=== PATIENT | male | born 1980 | race Caucasian/White ===

== ENCOUNTER 2020-08-28 17:23 | Inpatient (IN) | payer OTHER ==
[2020-08-28 18:26] VITALS: BMI 27.1
[2020-08-28] MEDS ORDERED: BISMUTH SUBSALICYLATE 524 MG/30 ML UD PO PRN (21:23)
[2020-08-28] MEDS ORDERED: MENTHOL/PHENOL 1 EACH UD MM PRN (21:23)
[2020-08-28] MEDS ORDERED: MAGNESIUM CITRATE 300 ML BOTTLE PO PRN (21:23)
[2020-08-28] MEDS ORDERED: MAGNESIUM HYDROX 2400MG/30ML ORAL SUSPENSION 30 ML CUP PO PRN (21:23)
[2020-08-28] MEDS ORDERED: ACETAMINOPHEN 325 MG TABLET (FP) PO PRN ×2 (21:23)
[2020-08-28] MEDS ORDERED: hydrOXYzine PAMOATE 25 MG CAPSULE (FP) PO PRN (21:23)
[2020-08-28] MEDS ORDERED: MAG HYDROX/AL HYDROX/SIMETH 30 ML UNIT-DOSE CUP PO PRN (21:23)
[2020-08-28] MEDS ORDERED: ONDANSETRON *ODT* 4 MG TABLET SL PRN (21:23)
[2020-08-28] MEDS: MELATONIN 5 MG TABLETS PO SCH (22:19)
[2020-08-28] MEDS: BACITRACIN 0.9 GM PACKET TP SCH (22:19)
[2020-08-28] MEDS: THIAMINE HCL 100 MG TABLET (FP) PO SCH (22:20)
[2020-08-28] MEDS: diazePAM 5 MG TABLET PO SCH (22:20)
[2020-08-28] MEDS ORDERED: METHADONE HCL 10 MG TABLET (FOR DETOX USE ONLY) PO ONE (22:30)
[2020-08-29] MEDS: diazePAM 5 MG TABLET PO SCH ×4 (05:11→22:27)
[2020-08-29] MEDS ORDERED: INSULIN SLIDING SCALE (NOVOLOG) 1 VIAL SQ ONE ×2 (05:14→17:41)
[2020-08-29] MEDS ORDERED: INSULIN (NOVOLOG) ASPART 100 UNITS/ML 10ML VIAL SQ ONE (07:08)
[2020-08-29] MEDS: diazePAM 5 MG TABLET PO PRN (08:36)
[2020-08-29] MEDS ORDERED: METHADONE HCL 5 MG TABLET (FOR DETOX USE ONLY) ONE (08:41)
[2020-08-29] MEDS ORDERED: METHADONE HCL 10 MG TABLET (FOR DETOX USE ONLY) ONE (08:41)
[2020-08-29] MEDS ORDERED: METHADONE (DETOX) 20 MG, METHADONE (DETOX) 5 MG PO ONE (10:00)
[2020-08-29] MEDS: BACITRACIN 0.9 GM PACKET TP SCH ×2 (10:07→22:26)
[2020-08-29] MEDS: PRENATAL VITAMINS W/ FOLIC ACID TABLET (FP) PO SCH (10:07)
[2020-08-29] MEDS: METHOCARBAMOL 500 MG TABLET PO PRN ×2 (10:11→19:13)
[2020-08-29 12:18] LABS: HEMATOCRIT 41.2 % (35.4-49); HEMOGLOBIN 13.4 GM/dL (11.7-16.9); MCHC 32.5 g/dl (32.0-35.9); MEAN CELL VOLUME 86.2 fl (80-96); MEAN PLT VOLUME 11.4 fl (7.5-11.1); PLATELET COUNT 93 K/MM3 (134-434); RBC 4.78 M/mm3 (4.00-5.60); RDW 14.3 % (11.9-15.9); WHITE BLOOD COUNT 7.6 K/mm3 (4.0-10.0)
[2020-08-29 12:27] LABS: POTASSIUM 4.1 mmol/L (3.5-5.1)
[2020-08-29 12:33] LABS: ALBUMIN 2.7 g/dl (3.4-5.0); CALCIUM 8.4 mg/dL (8.5-10.1)
[2020-08-29 12:37] LABS: CREATININE 0.8 mg/dL (0.55-1.3)
[2020-08-29 12:38] LABS: BILIRUBIN,TOTAL 0.6 mg/dL (0.2-1); TOT PROT 6.1 g/dl (6.4-8.2)
[2020-08-29] MEDS: cloNIDine HCL 0.1 MG TABLET PO PRN ×3 (12:54→22:27)
[2020-08-29] MEDS: INSULIN (NOVOLOG) ASPART 100 UNITS/ML 10ML VIAL SQ SCH (17:40)
[2020-08-29] MEDS: QUEtiapine FUMARATE 200 MG TABLET PO SCH (22:26)
[2020-08-29] MEDS: MELATONIN 5 MG TABLETS PO SCH (22:26)
[2020-08-29] MEDS: THIAMINE HCL 100 MG TABLET (FP) PO SCH (22:26)
[2020-08-30] MEDS: IBUPROFEN 400 MG TABLET (FP) PO PRN ×3 (01:08→20:58)
[2020-08-30] MEDS: METHOCARBAMOL 500 MG TABLET PO PRN ×3 (01:09→20:04)
[2020-08-30] MEDS: diazePAM 5 MG TABLET PO SCH ×3 (05:16→22:16)
[2020-08-30] MEDS ORDERED: INSULIN (NOVOLOG) ASPART 100 UNITS/ML 10ML VIAL SQ ONE (07:48)
[2020-08-30] MEDS ORDERED: INSULIN SLIDING SCALE (NOVOLOG) 1 VIAL SQ ONE ×5 (08:02→21:20)
[2020-08-30] MEDS: INSULIN (NOVOLOG) ASPART 100 UNITS/ML 10ML VIAL SQ SCH ×5 (08:21→21:20)
[2020-08-30] MEDS: PRENATAL VITAMINS W/ FOLIC ACID TABLET (FP) PO SCH (09:27)
[2020-08-30] MEDS: BACITRACIN 0.9 GM PACKET TP SCH ×2 (09:28→22:15)
[2020-08-30] MEDS ORDERED: METHADONE HCL 10 MG TABLET (FOR DETOX USE ONLY) PO ONE (10:00)
[2020-08-30] MEDS: diazePAM 5 MG TABLET PO PRN ×2 (11:34→15:37)
[2020-08-30] MEDS: cloNIDine HCL 0.1 MG TABLET PO PRN ×2 (14:03→17:41)
[2020-08-30] MEDS: metFORMIN HCL 500 MG TABLET (FP) PO SCH (17:36)
[2020-08-30] MEDS: THIAMINE HCL 100 MG TABLET (FP) PO SCH (22:15)
[2020-08-30] MEDS: MELATONIN 5 MG TABLETS PO SCH (22:15)
[2020-08-30] MEDS: QUEtiapine FUMARATE 200 MG TABLET PO SCH (22:18)
[2020-08-31] MEDS: diazePAM 5 MG TABLET PO PRN ×4 (03:57→19:27)
[2020-08-31] MEDS: diazePAM 5 MG TABLET PO SCH ×2 (05:16→17:17)
[2020-08-31] MEDS: IBUPROFEN 400 MG TABLET (FP) PO PRN ×2 (05:17→22:22)
[2020-08-31] MEDS: metFORMIN HCL 500 MG TABLET (FP) PO SCH ×2 (06:11→17:17)
[2020-08-31] MEDS: METHOCARBAMOL 500 MG TABLET PO PRN (06:45)
[2020-08-31] MEDS ORDERED: INSULIN SLIDING SCALE (NOVOLOG) 1 VIAL SQ ONE ×4 (07:00→21:28)
[2020-08-31] MEDS: INSULIN (NOVOLOG) ASPART 100 UNITS/ML 10ML VIAL SQ SCH ×4 (07:03→21:28)
[2020-08-31] MEDS ORDERED: METHADONE HCL 10 MG TABLET (FOR DETOX USE ONLY) ONE (08:54)
[2020-08-31] MEDS ORDERED: METHADONE HCL 5 MG TABLET (FOR DETOX USE ONLY) ONE (08:54)
[2020-08-31] MEDS: BACITRACIN 0.9 GM PACKET TP SCH ×2 (09:24→22:18)
[2020-08-31] MEDS: PRENATAL VITAMINS W/ FOLIC ACID TABLET (FP) PO SCH (09:24)
[2020-08-31] MEDS ORDERED: METHADONE (DETOX) 10 MG, METHADONE (DETOX) 5 MG PO ONE (10:00)
[2020-08-31] MEDS: NICOTINE POLACRILEX 2 MG GUM BUC PRN ×3 (11:30→21:27)
[2020-08-31] MEDS: METHOCARBAMOL 750 MG TAB PO PRN ×2 (13:02→19:30)
[2020-08-31] MEDS: MELATONIN 5 MG TABLETS PO SCH (22:19)
[2020-08-31] MEDS: THIAMINE HCL 100 MG TABLET (FP) PO SCH (22:19)
[2020-08-31] MEDS: QUEtiapine FUMARATE 200 MG TABLET PO SCH (22:20)
[2020-09-01] MEDS: METHOCARBAMOL 750 MG TAB PO PRN (04:48)
[2020-09-01] MEDS ORDERED: INSULIN SLIDING SCALE (NOVOLOG) 1 VIAL SQ ONE ×3 (04:56→06:43)
[2020-09-01] MEDS ORDERED: diazePAM 5 MG TABLET PO ONE (06:00)
[2020-09-01] MEDS: metFORMIN HCL 500 MG TABLET (FP) PO SCH (06:42)
[2020-09-01] MEDS: INSULIN (NOVOLOG) ASPART 100 UNITS/ML 10ML VIAL SQ SCH (06:43)
[2020-09-01] MEDS: NICOTINE POLACRILEX 2 MG GUM BUC PRN (07:03)
[2020-09-01 07:27] VITALS: BP 133/79; PULSE 74; TEMP 98
[2020-09-01] MEDS: BACITRACIN 0.9 GM PACKET TP SCH (09:06)
[2020-09-01] MEDS: PRENATAL VITAMINS W/ FOLIC ACID TABLET (FP) PO SCH (09:10)
[2020-09-01] MEDS ORDERED: METHADONE HCL 10 MG TABLET (FOR DETOX USE ONLY) PO ONE (10:00)
[2020-09-02] MEDS ORDERED: METHADONE HCL 5 MG TABLET (FOR DETOX USE ONLY) PO ONE (06:00)
== END 2020-09-01 09:17 | disposition home or self-care (01) | DRG 897 ==
LOC: YASAS 17:23 → Y3N 21:33
PROVIDERS: ADMIT Allergy & Immunology; ATTEND Allergy & Immunology
PROC: HZ2ZZZZ Detoxification Services for Substance Abuse Treatment (ICD-10-PCS; principal; 2020-08-28)
DX: F11.23 Opioid dependence with withdrawal (principal); F13.20 Sedative, hypnotic or anxiolytic dependence, uncomplicated; F14.20 Cocaine dependence, uncomplicated; F19.280 Other psychoactive substance dependence with psychoactive substance-induced anxiety disorder; F10.230 Alcohol dependence with withdrawal, uncomplicated; F17.210 Nicotine dependence, cigarettes, uncomplicated; F19.24 Other psychoactive substance dependence with psychoactive substance-induced mood disorder; F25.9 Schizoaffective disorder, unspecified; F41.1 Generalized anxiety disorder; F32.9 Major depressive disorder, single episode, unspecified; E11.9 Type 2 diabetes mellitus without complications; Z79.84 Long term (current) use of oral hypoglycemic drugs; Z91.5 Personal history of self-harm
CPT/HCPCS: 36415; 80053; 82962; 83036; 85027; 86780; 93005; 93010; C9803; J0735; U0003